=== PATIENT | male | born 1975 | race African-American/Black ===

== ENCOUNTER 2022-11-11 04:54 | Inpatient (IN) | payer BC ==
[2022-11-11] MEDS ORDERED: Dexamethasone 10 MG/ML VIAL ONE (05:43)
[2022-11-11] MEDS ORDERED: Benzocaine 20% Spray 60 ML CAN TOP SCH (07:00)
[2022-11-11] MEDS ORDERED: Clindamycin/D5W 600 MG in Premix Bag 1 BAG IVPB SCH (07:00)
[2022-11-11] MEDS ORDERED: Ondansetron PF 4 MG/2 ML Vial IVP PRN (08:18)
[2022-11-11] MEDS ORDERED: Electrolyte Replacement Protocol 1 EACH IVPB PRN (08:18)
[2022-11-11 08:58] LABS: #Eosinphils 0.1 10x3/uL (0.0-0.5); #Monocytes 0.2 10x3/uL (0.0-1.1); #Neutrophils 16.4 10x3/uL (1.5-8.4); %Basophils 0.2 % (0.0-2.0); %Eosinophils 0.3 % (0.0-6.0); %Lymphocytes 6.7 % (18.0-47.0); %Monocytes 1.3 % (0.0-10.0); %Neutrophils 90.9 % (40.0-75.0); Hematocrit 52.1 % (38.8-50.0); Hemoglobin 17.2 g/dL (13.5-17.5); Mean Corpuscular Hemoglobin 26.1 pg (27.0-33.0); Mean Corpuscular Volume 79.1 fl (81.2-95.1); Mean Platelet Volume 11.7 fl (7.4-10.4); Platelet Count 180 10x3/uL (150-450); RBC Distribution Width 14.6 % (11.5-14.5); Red Blood Cell (RBC) Count 6.59 10x6/uL (4.32-5.72)
[2022-11-11 09:07] LABS: Lactic Acid 1.1 mmol/L (0.5-2.2)
[2022-11-11 09:11] LABS: ALT (SGPT) 24 U/L (8-55); AST (SGOT) 25 U/L (5-34); Albumin 4.6 g/dL (3.5-5.0); Alkaline Phosphatase 103 U/L (40-110); Anion Gap 16 mmol/L (10-20); BUN (Urea Nitrogen) 13 mg/dL (8.9-20.6); Bilirubin, Total 0.6 mg/dL (0.2-1.2); Calc. Creatinine Clearance 0 mL/min (70-130); Calcium 10.2 mg/dL (7.8-10.44); Carbon Dioxide 22 mmol/L (22-29); Chloride 101 mmol/L (98-107); Estimated GFR 72; Globulin 3.8 g/dL (2.4-3.5); Glucose 128 mg/dL (70-105); Potassium 4.1 mmol/L (3.5-5.1); Protein, Total 8.4 g/dL (6.0-8.3); Sodium 135 mmol/L (136-145)
[2022-11-11] MEDS ORDERED: hydrALAZINE 20 MG/ML VIAL SLOW IVP PRN ×2 (09:15→17:00)
[2022-11-11] MEDS ORDERED: hydrALAZINE 20 MG/ML VIAL ONE (09:22)
[2022-11-11] MEDS: Ampicillin/Sulbactam 3 GM in Sodium Chloride 0.9% 100 ML IVPB SCH ×2 (09:29→17:22)
[2022-11-11] MEDS ORDERED: VANCOMYCIN 2 GRAM/400 ML BAG 2 GM in Premix Bag 1 BAG IVPB SCH (09:30)
[2022-11-11] MEDS ORDERED: hydrALAZINE 20 MG/ML VIAL SLOW IVP SCH (09:45)
[2022-11-11] MEDS ORDERED: Iopamidol 300 61% 100 ML VIAL FS ONE (09:51)
[2022-11-11 10:15] LABS: Phosphorus 2.2 mg/dL (2.3-4.7)
[2022-11-11] MEDS ORDERED: Magnesium 2 GM/50 ML(in water) 2 GM in Premix Bag 1 BAG IVPB SCH (11:00)
[2022-11-11 11:27] VITALS: BMI 52.9
[2022-11-11] MEDS ORDERED: Labetalol HCl 100 MG/20 ML VIAL SLOW IVP SCH (12:30)
[2022-11-11] MEDS ORDERED: niCARdipine 25 MG in Sodium Chloride 0.9% 250 ML 250 ML IVPB SCH (17:15)
[2022-11-11] MEDS: Sodium Chloride 0.9% 1,000 ML IV SCH (17:22)
[2022-11-11] MEDS ORDERED: Morphine 4 MG/ML VIAL SLOW IVP SCH (18:00)
[2022-11-11] MEDS: Heparin 5,000 UNITS/ML VIAL SC SCH (21:31)
[2022-11-11] MEDS: VANCOMYCIN 1.75 GM/350 ML BAG 1.75 GM in Premix Bag 1 BAG IVPB SCH (21:31)
[2022-11-12] MEDS: Ampicillin/Sulbactam 3 GM in Sodium Chloride 0.9% 100 ML IVPB SCH ×3 (00:47→18:17)
[2022-11-12] MEDS: Sodium Chloride 0.9% 1,000 ML IV SCH ×2 (04:48→18:17)
[2022-11-12 04:53] LABS: #Monocytes 0.9 10x3/uL (0.0-1.1); #Neutrophils 13.1 10x3/uL (1.5-8.4); %Basophils 0.1 % (0.0-2.0); %Lymphocytes 10.6 % (18.0-47.0); %Monocytes 5.8 % (0.0-10.0); %Neutrophils 83.1 % (40.0-75.0); Hematocrit 47.7 % (38.8-50.0); Hemoglobin 15.5 g/dL (13.5-17.5); Mean Corpuscular HGB CONC 32.5 g/dL (32.0-36.0); Mean Corpuscular Hemoglobin 25.7 pg (27.0-33.0); Mean Corpuscular Volume 79.2 fl (81.2-95.1); Mean Platelet Volume 12.1 fl (7.4-10.4); Platelet Count 187 10x3/uL (150-450); RBC Distribution Width 14.4 % (11.5-14.5); Red Blood Cell (RBC) Count 6.02 10x6/uL (4.32-5.72); White Blood Cell (WBC) Count 15.8 10x3/uL (3.5-10.5)
[2022-11-12 05:06] LABS: Anion Gap 16 mmol/L (10-20); BUN (Urea Nitrogen) 15 mg/dL (8.9-20.6); Calc. Creatinine Clearance 221 mL/min (70-130); Calcium 9.3 mg/dL (7.8-10.44); Carbon Dioxide 21 mmol/L (22-29); Chloride 104 mmol/L (98-107); Estimated GFR 91; Glucose 129 mg/dL (70-105); Magnesium 2.1 mg/dL (1.6-2.6); Potassium 3.7 mmol/L (3.5-5.1); Sodium 137 mmol/L (136-145)
[2022-11-12] MEDS ORDERED: Dexamethasone 20 MG/5 ML VIAL SLOW IVP SCH (08:00)
[2022-11-12] MEDS ORDERED: Sodium Chloride 0.9% 100 ML ONE (08:02)
[2022-11-12] MEDS ORDERED: Ampicillin/Sulbactam 3 GM VIAL ONE (08:02)
[2022-11-12] MEDS: Heparin 5,000 UNITS/ML VIAL SC SCH ×3 (08:04→22:51)
[2022-11-12] MEDS ORDERED: Potassium Phosphate 15 MMOL in Sodium Chloride 0.9% 250 ML 250 ML IVPB SCH (09:00)
[2022-11-12] MEDS: VANCOMYCIN 1.75 GM/350 ML BAG 1.75 GM in Premix Bag 1 BAG IVPB SCH ×2 (11:08→22:51)
[2022-11-12] MEDS ORDERED: hydrALAZINE 20 MG/ML VIAL SLOW IVP PRN (15:09)
[2022-11-12] MEDS ORDERED: Losartan Potassium 50 MG TAB PO SCH (15:15)
[2022-11-12] MEDS ORDERED: Triamterene/Hydrochlorothiazide 37.5 mg/25 mg Tablet PO SCH (15:15)
[2022-11-12 22:58] LABS: Vancomycin, Trough 11.1 ug/mL
[2022-11-13] MEDS: Ampicillin/Sulbactam 3 GM in Sodium Chloride 0.9% 100 ML IVPB SCH ×2 (02:21→08:17)
[2022-11-13 03:35] LABS: Hematocrit 46.6 % (38.8-50.0); Hemoglobin 15.1 g/dL (13.5-17.5); Mean Corpuscular HGB CONC 32.4 g/dL (32.0-36.0); Mean Corpuscular Volume 80.2 fl (81.2-95.1); Mean Platelet Volume 12.6 fl (7.4-10.4); Platelet Count 196 10x3/uL (150-450); RBC Distribution Width 14.6 % (11.5-14.5); Red Blood Cell (RBC) Count 5.81 10x6/uL (4.32-5.72); White Blood Cell (WBC) Count 16.5 10x3/uL (3.5-10.5)
[2022-11-13 03:39] LABS: MDiff Complete? YES
[2022-11-13 03:59] LABS: Anion Gap 15 mmol/L (10-20); BUN (Urea Nitrogen) 21 mg/dL (8.9-20.6); Calc. Creatinine Clearance 235 mL/min (70-130); Calcium 8.9 mg/dL (7.8-10.44); Carbon Dioxide 20 mmol/L (22-29); Chloride 107 mmol/L (98-107); Estimated GFR 98; Glucose 122 mg/dL (70-105); Potassium 3.7 mmol/L (3.5-5.1); Sodium 138 mmol/L (136-145)
[2022-11-13 04:08] LABS: Platelet Adequacy Comment Appears Adequate; RBC Morph Comment Within Normal Limits
[2022-11-13 04:11] LABS: Band 6 % (5-11); Lymphocytes 15 % (21-51); Monocytes 7 % (0-10); Neutrophil 72 % (42-75); Nucleated RBC (Manual Ct) 1 % (0)
[2022-11-13] MEDS: Heparin 5,000 UNITS/ML VIAL SC SCH (08:18)
[2022-11-13] MEDS: Sodium Chloride 0.9% 1,000 ML IV SCH (08:18)
[2022-11-13] MEDS ORDERED: Triamterene/Hydrochlorothiazide 37.5 mg/25 mg Tablet PO SCH (09:00)
[2022-11-13] MEDS ORDERED: Losartan Potassium 50 MG TAB PO SCH ×2 (09:00)
[2022-11-13 09:38] VITALS: BP 173/83; TEMP 97.4
== END 2022-11-13 10:20 | disposition home or self-care (01) | DRG 872 ==
LOC: CSHERS 04:54 → SUATTDRO 04:54 → CSHERHOLD 08:19 → CSHICU 11:26 → CSHTELE 11-12 17:22
PROVIDERS: ADMIT Internal Medicine; ATTEND Internal Medicine
PROC: 3E03329 Introduction of Other Anti-infective into Peripheral Vein, Percutaneous Approach (ICD-10-PCS; 2022-11-11)
PROC: 0CJS8ZZ Inspection of Larynx, Via Natural or Artificial Opening Endoscopic (ICD-10-PCS; principal; 2022-11-12)
DX: A41.9 Sepsis, unspecified organism (principal); J39.0 Retropharyngeal and parapharyngeal abscess; Z68.43 Body mass index [BMI] 50.0-59.9, adult; I10 Essential (primary) hypertension; G47.33 Obstructive sleep apnea (adult) (pediatric); F17.210 Nicotine dependence, cigarettes, uncomplicated; E66.01 Morbid (severe) obesity due to excess calories; Z79.899 Other long term (current) drug therapy; Z71.6 Tobacco abuse counseling
CPT/HCPCS: 36415; 70491; 80048; 80053; 80202; 83605; 83735; 84100; 85025; 87040; 87081; 87430; 94760; 94762; 96365; 96375; J0295; J0360; J1100; J1644; J2270; J3370; J3475; J3490; J7050; Q9967